=== PATIENT | male | born 1960 ===

== ENCOUNTER 2017-04-11 14:03 | Outpatient (CLI) | payer OTHER ==
--- NOTE | 2017-04-11 19:38 | XRay Report ---
FINAL REPORT EXAM: XR KNEE 4+V RT HISTORY: LEFT KNEE PAIN TECHNIQUE: Left knee 4 views PRIORS: None. FINDINGS: No fracture is identified. No dislocation seen. No evidence of joint effusion. Patella demonstrates normal positioning. No acute bony abnormality identified. IMPRESSION: Negative knee series
== END 2017-04-11 14:04 | disposition home or self-care (01) ==
LOC: SPVIMAG 14:03
PROVIDERS: ATTEND Orthopaedic Surgery
DX: M25.562 Pain in left knee (principal)